=== PATIENT | male | born 1955 | race African-American/Black ===

== ENCOUNTER 2018-01-07 15:27 | Outpatient (CLI) | payer BC ==
--- NOTE | 2018-01-07 16:39 | MRI ---
MRI LUMBAR SPINE WITHOUT CONTRAST: 01/07/18 HISTORY: Intervertebral degenerative disc disease with radiculopathy. Low back pain radiating down the left le g x1 year. COMPARISON: None. TECHNIQUE: MRI lumbar spine is performed without intravenous gadolinium administration. Multisequential, multipl franklyn imaging is performed. FINDINGS: Appropriate T1 marrow signal intensity in the lumbar vertebrae. Lumbar spine vertebral body height is maintained. No fracture. 3 mm of retrolisthesis of L2 upon L3 and 3.5 mm of anterolisthesis of L4 up on L5. No significant STIR hyperintensity to suggest vertebral body or ligamentous injury. Conus medu llaris terminates at the mid aspect of L1. No retroperitoneal mass or lymphadenopathy. Symmetric signal intensity of the psoas muscles. The visu alized solid organs have appropriate signal intensity. T12-L1: Mild loss of disc space height. Minimal central disc protrusion. No significant central canal stenosis. Mild bilateral foraminal narrowing. L1-L2: Mild loss of disc space height. Small left paracentral/subarticular disc protrusion. There is minimal narrowing of the left subarticular zone without significant mass effect upon the traversing l eft L2 nerve root. Overall mild central canal stenosis. Right neural foramen is patent. Mild left for aminal narrowing. L2-L3: Moderate loss of disc space height. Generalized disc bulge results in mild stenosis of the the alirio sac. Small amount of fluid in both interarticular facet joints. Mild to moderate bilateral forami nal narrowing. There is a small annular fissure in the left subarticular zone. This fissure abuts the t raversing left L3 nerve root. L3-L4: Adequate disc hydration. No significant loss of disc space height. There is minimal ligamentum flavum thickening and facet hypertrophy. No significant central canal stenosis. Mild right and left foraminal narrowing. L4-L5: Moderate loss of disc space height. There is a broad based disc bulge with left and right suba rticular components. There is mild stenosis of the thecal sac. However, there is complete obscuration of bilateral traversing L5 nerve roots. There is also inferior disc extrusion into the left subartic ular zone with disc material displacing and partially obscuring the traversing left S1 nerve root. Di sc material also causes some mass effect upon the traversing left L5 nerve root. There is bilateral f acet hypertrophy with moderate amount of fluid in both facet joints. L5-S1: Desiccation with moderate to severe loss of disc space height. There is a generalized disc bul ge with minimal encroachment upon both subarticular zones. Mild stenosis of the thecal sac. Moderate to severe bilateral foraminal narrowing. IMPRESSION: 1. Overall decreased AP diameter of the central spinal canal due to congenitally foreshortened p edicles. 2. Significant degenerative disc disease at L4-L5. There is mass effect upon both traversing L5 nerve roots due to disc material in both subarticular zones. Additionally, there is a inferior disc e xtrusion in the left subarticular zone with disc material abutting the traversing left L5 and S1 nerv e roots. 3. Significant multilevel foraminal stenosis as detailed above. 4. Annual fissure at the L2-L3 subarticular zone. Annular fissure is at the level of the traversing left L3 nerve root. POS: ORION
== END 2018-01-07 15:28 | disposition home or self-care (01) ==
LOC: TBSIIMAG 15:27
PROVIDERS: ATTEND Specialist
DX: M51.16 Intervertebral disc disorders with radiculopathy, lumbar region (principal); M51.17 Intervertebral disc disorders with radiculopathy, lumbosacral region; Q76.49 Other congenital malformations of spine, not associated with scoliosis; M99.83 Other biomechanical lesions of lumbar region; Q05.7 Lumbar spina bifida without hydrocephalus
CPT/HCPCS: 72148

== ENCOUNTER 2018-12-14 10:17 | Outpatient (CLI) | payer MEDICARE, BC ==
--- NOTE | 2018-12-14 11:37 | MRI ---
MRI lumbar spine: 12/14/2018 COMPARISON: 01/07/2018 HISTORY: Back pain with lumbar radiculopathy, left lower extremity pain TECHNIQUE: Multiplanar multisequence MR imaging of the lumbar spine provided without contrast FINDINGS: The sagittal STIR imaging demonstrates no focal area of osseous marrow edema. On the basis of 5 lumbar type vertebral bodies, the conus medullaris terminates at the L1 level. No significant anterolisthesis or retrolisthesis within the lumbar spine. T12-L1: There is disc space narrowing and mild disc bulge with a small central disc protrusion, stabl e. Stable mild central canal stenosis. No significant neural foraminal stenosis. L1-2: Stable small left paracentral disc protrusion. Disc space narrowing and disc desiccation noted. Stable mild left lateral recess stenosis. No significant neural foraminal stenosis. L2-3: Disc space narrowing disc desiccation and a mild disc bulge. No significant central canal steno sis. Mild bilateral facet hypertrophy with mild stable bilateral neural foraminal stenosis. L3-4: Intervertebral disc height and signal intensity appears grossly unremarkable with no significan t central canal or neural foraminal stenosis L4-5: There is disc space narrowing, disc desiccation, and disc bulge noted with superimposed right p aracentral disc protrusion, stable. There is associated moderate central canal stenosis/right lateral recess stenosis, stable as well. Significant bilateral facet hypertrophy noted with moderate bilater al neural foraminal stenosis, left greater than right, not significantly changed. L5-S1: There is disc space narrowing and disc desiccation with central disc protrusion, stable. Stabl e mild/moderate central canal stenosis. Mild bilateral facet hypertrophy with stable mild bilateral n eural foraminal stenosis. Vacuum disc formation noted. Review of the retroperitoneal structures demonstrates no acute findings. IMPRESSION: Multilevel stable degenerative change within the lumbar spine as detailed above.
--- NOTE | 2018-12-14 12:03 | RAD ---
LUMBAR SPINE FOUR VIEWS: History: Lumbar stenosis, neurogenic claudication. FINDINGS: Lumbar vertebrae maintain height and alignment. Moderate degenerative changes. Anterior spurring. [place] s of disc space at L2-3, L4-5, and L5-S1. Mild anterolisthesis of L4-5. Prominent facet hypertrophy. No significant change in alignment with flexion or extension. IMPRESSION: Moderate degenerative changes of the lumbar spine as described. POS: [facility]ION
== END 2018-12-14 10:18 | disposition home or self-care (01) ==
LOC: TBSIIMAG 10:17
PROVIDERS: ATTEND Surgery
DX: M48.062 Spinal stenosis, lumbar region with neurogenic claudication (principal); M47.26 Other spondylosis with radiculopathy, lumbar region
CPT/HCPCS: 72110; 72148

== ENCOUNTER 2019-03-22 09:21 | Day surgery (SDC) | payer MEDICARE, BC ==
[2019-03-21 12:36] VITALS: BMI 34.4
[2019-03-22] MEDS ORDERED: Fentanyl 100 MCG/2 ML VIAL ONE ×4 (10:26→15:43)
[2019-03-22 10:45] LABS: Prothrombin Time 13.3 SEC (12.0-14.7)
[2019-03-22 10:46] LABS: PTT 37.9 SEC (22.9-36.1)
[2019-03-22] MEDS ORDERED: Thrombin 5000 UNITS/5 ML VIAL ONE ×2 (10:56→13:14)
[2019-03-22] MEDS ORDERED: Sodium Chloride 0.9% 10 ML ONE (10:56)
[2019-03-22] MEDS ORDERED: Rocuronium Bromide 50 MG/5 ML VIAL ONE (12:24)
[2019-03-22] MEDS ORDERED: Phenylephrine HCL 10 MG/ML VIAL ONE (12:24)
--- NOTE | 2019-03-22 14:44 | OP ---
DATE OF PROCEDURE: 03/22/2019 LOCATION: OR 11. WOUND CLASSIFICATION: Type 1 wound. PROCEDURES RN: Eloy Harley PA-C PREPROCEDURE DIAGNOSES: 1. Lumbar stenosis with low back and leg pain. 2. Lumbar disk extrusion. POSTPROCEDURE DIAGNOSES: 1. Lumbar stenosis with low back and leg pain. 2. Lumbar disk extrusion. PROCEDURE PERFORMED: 1. L4-L5 and L5-S1 laminectomies, partial facetectomies, and foraminotomies. 2. Use of operative microscope for microdissection. DESCRIPTION OF PROCEDURE: After informed consent was obtained from the patient, the patient was brought to the OR. Proper patient, pause, and identification were carried out. He was placed under excellent general endotracheal anesthesia and positioned prone on the OR table. All appropriate points were padded. We identified the L4, L5, and S1 dorsal spines. A linear que was made over this area. This region was sterilely cleansed, prepared, and draped. Proper patient, pause, and identification were carried out. The wound was then opened with a combination of sharp, monopolar, and blunt dissection. The L4, L5, and S1 dorsal spines and lamina were exposed. Localization film confirmed area of interest. We then performed L4-L5 and L5-S1 laminectomies, partial facetectomies, and foraminotomies. There was small amount of CSF leakage at the L4-L5 segment. Two single sutures were placed with no evidence of further CSF leakage. Copious irrigation occurred throughout and we had excellent decompression of the common dural tube of the L4, the L5, and the S1 nerve roots bilaterally. We then brought the microscope in for microdissection and identified right-sided L4-L5 disk extrusion. Diskectomy was performed. We were satisfied with our decompression. Again, maximized hemostasis. Copious irrigation. DuraSeal was placed over the thecal sac and there was no evidence of CSF leak. Job ID: [id number]
[2019-03-22] MEDS ORDERED: Mag-Al 1200 mg/1200 mg/30 ML UDCUP PO PRN (15:07)
[2019-03-22] MEDS ORDERED: Ondansetron PF 4 MG/2 ML Vial IVP PRN (15:07)
[2019-03-22] MEDS ORDERED: HYDROcodone/Acetaminophen 7.5/325 mg Tablet PO PRN (15:07)
[2019-03-22] MEDS ORDERED: traMADol HCl 50 MG TAB PO PRN (15:07)
[2019-03-22] MEDS ORDERED: Fleet Enema 133 ML BOT PR PRN (15:07)
[2019-03-22] MEDS ORDERED: Acetaminophen 325 MG TAB PO PRN (15:07)
[2019-03-22] MEDS ORDERED: Bisacodyl 10 MG SUPP PR PRN (15:07)
[2019-03-22] MEDS ORDERED: Milk Of Magnesia 30 ML UDCUP PO PRN (15:07)
[2019-03-22] MEDS ORDERED: tiZANidine HCl 4 MG TAB PO PRN (15:07)
[2019-03-22] MEDS ORDERED: Ondansetron HCl/PF 4 MG/2 ML Vial IVP PRN (15:15)
[2019-03-22] MEDS ORDERED: CEFAZOLIN 2 GM in Premix Bag 1 BAG IVPB SCH (15:15)
[2019-03-22] MEDS ORDERED: Meperidine HCl/PF 25 MG/ML VIAL SLOW IVP PRN (15:15)
[2019-03-22] MEDS ORDERED: Promethazine HCl 25 MG/ML VIAL IM PRN (15:15)
[2019-03-22] MEDS: Sodium Chloride 0.9% 1,000 ML IV SCH ×2 (17:08→20:01)
[2019-03-22] MEDS: Acetaminophen/Codeine 30-300mg Tablet PO PRN (20:01)
[2019-03-22] MEDS: CEFAZOLIN 2 GM in Premix Bag 1 BAG IVPB SCH (20:02)
[2019-03-23] MEDS: Sodium Chloride 0.9% 1,000 ML IV SCH (04:06)
[2019-03-23] MEDS: CEFAZOLIN 2 GM in Premix Bag 1 BAG IVPB SCH (04:06)
[2019-03-23] MEDS: Acetaminophen/Codeine 30-300mg Tablet PO PRN (07:17)
[2019-03-23] MEDS ORDERED: Amlodipine 10 MG TAB PO SCH (09:00)
--- NOTE | 2019-03-23 09:47 | PRG ---
DATE OF SERVICE: 03/23/2019 Mr. Bob is postoperative day 1 from lumbar decompression. He states he has had resolution in his leg pain and he is moving his extremities without deficit. His dressing is dry and he is doing very, very well. He is very pleased with the outcome. He has had no evidence of CSF or hypotension, and he is already mobilizing. We went over intra and postoperative issues and he knows to call us with any concerns. Job ID: [id number]
[2019-03-23 12:03] VITALS: BP 146/90; TEMP 98.5
== END 2019-03-23 11:15 | disposition home or self-care (01) ==
LOC: SDC 09:21 → SURG B 17:00 → SDC 03-23 11:15
PROVIDERS: ATTEND Surgery
PROC: 01NB0ZZ Release Lumbar Nerve, Open Approach (ICD-10-PCS; principal; 2019-03-22)
PROC: 0SB20ZZ Excision of Lumbar Vertebral Disc, Open Approach (ICD-10-PCS; 2019-03-22)
DX: M48.061 Spinal stenosis, lumbar region without neurogenic claudication (principal); M48.07 Spinal stenosis, lumbosacral region; M51.16 Intervertebral disc disorders with radiculopathy, lumbar region; Z79.899 Other long term (current) drug therapy
CPT/HCPCS: 76000; 85610; 85730; J0131; J0690; J2370; J3010; J3370; J3490

== ENCOUNTER 2023-06-09 10:01 | Outpatient (CLI) | payer MEDICARE ==
[2023-06-09 11:51] LABS: #Basophils 0.1 10x3/uL (0.0-0.2); #Eosinphils 0.3 10x3/uL (0.0-0.5); #Monocytes 0.7 10x3/uL (0.0-1.1); #Neutrophils 6.1 10x3/uL (1.5-8.4); %Basophils 0.6 % (0.0-2.0); %Lymphocytes 24.4 % (18.0-47.0); %Monocytes 7.6 % (0.0-10.0); %Neutrophils 64.1 % (40.0-75.0); Hematocrit 39.4 % (38.8-50.0); Hemoglobin 12.8 g/dL (13.5-17.5); Mean Corpuscular HGB CONC 32.5 g/dL (32.0-36.0); Mean Corpuscular Hemoglobin 27.9 pg (27.0-33.0); Mean Platelet Volume 9.6 fl (7.4-10.4); Platelet Count 290 10x3/uL (150-450); RBC Distribution Width 14.1 % (11.5-14.5); Red Blood Cell (RBC) Count 4.58 10x6/uL (4.32-5.72); White Blood Cell (WBC) Count 9.5 10x3/uL (3.5-10.5)
[2023-06-09 12:14] LABS: Anion Gap 15 mmol/L (10-20); BUN (Urea Nitrogen) 8 mg/dL (8.4-25.7); Calc. Creatinine Clearance 0 mL/min (70-130); Calcium 9.3 mg/dL (7.8-10.44); Carbon Dioxide 25 mmol/L (23-31); Chloride 106 mmol/L (98-107); Estimated GFR 83; Glucose 96 mg/dL (80-115); Potassium 4.1 mmol/L (3.5-5.1); Sodium 142 mmol/L (136-145)
== END 2023-06-09 10:02 | disposition home or self-care (01) ==
LOC: LABBT 10:01
PROVIDERS: ATTEND Orthopaedic Surgery
DX: Z01.818 Encounter for other preprocedural examination (principal); M19.011 Primary osteoarthritis, right shoulder
CPT/HCPCS: 80048; 85025; 93005; 93010

== ENCOUNTER 2023-07-06 07:43 | Outpatient (CLI) | payer MEDICARE ==
[2023-07-06 09:16] LABS: #Basophils 0.1 10x3/uL (0.0-0.2); #Eosinphils 0.3 10x3/uL (0.0-0.5); #Monocytes 0.9 10x3/uL (0.0-1.1); #Neutrophils 3.7 10x3/uL (1.5-8.4); %Basophils 0.9 % (0.0-2.0); %Eosinophils 3.9 % (0.0-6.0); %Lymphocytes 35.2 % (18.0-47.0); %Monocytes 11.8 % (0.0-10.0); %Neutrophils 48.1 % (40.0-75.0); Hematocrit 40.6 % (38.8-50.0); Hemoglobin 13.2 g/dL (13.5-17.5); Mean Corpuscular HGB CONC 32.5 g/dL (32.0-36.0); Mean Corpuscular Hemoglobin 28.4 pg (27.0-33.0); Mean Corpuscular Volume 87.3 fl (81.2-95.1); Mean Platelet Volume 9.8 fl (7.4-10.4); Platelet Count 326 10x3/uL (150-450); RBC Distribution Width 14.3 % (11.5-14.5); Red Blood Cell (RBC) Count 4.65 10x6/uL (4.32-5.72); White Blood Cell (WBC) Count 7.8 10x3/uL (3.5-10.5)
[2023-07-06 09:39] LABS: ALT (SGPT) 33 U/L (8-55); AST (SGOT) 35 U/L (5-34); Albumin 4.6 g/dL (3.4-4.8); Alkaline Phosphatase 75 U/L (40-110); Anion Gap 16 mmol/L (10-20); BUN (Urea Nitrogen) 12 mg/dL (8.4-25.7); Bilirubin, Total 0.5 mg/dL (0.2-1.2); Calc. Creatinine Clearance 0 mL/min (70-130); Calcium 9.6 mg/dL (7.8-10.44); Carbon Dioxide 23 mmol/L (23-31); Chloride 106 mmol/L (98-107); Estimated GFR 68; Globulin 3.3 g/dL (2.4-3.5); Glucose 109 mg/dL (80-115); Potassium 4.5 mmol/L (3.5-5.1); Protein, Total 7.9 g/dL (5.8-8.1); Sodium 140 mmol/L (136-145)
== END 2023-07-06 07:44 | disposition home or self-care (01) ==
LOC: LABBT 07:43
PROVIDERS: ATTEND Internal Medicine Cardiovascular Disease
DX: Z01.812 Encounter for preprocedural laboratory examination (principal)
CPT/HCPCS: 80053; 85025

== ENCOUNTER 2023-07-08 05:36 | Day surgery (SDC) | payer MEDICARE ==
[2023-07-06 08:25] VITALS: BMI 34.2
[2023-07-08] MEDS ORDERED: Midazolam HCl 2 mg/2 ml Vial ONE (06:17)
[2023-07-08] MEDS ORDERED: fentaNYL 50 mcg/mL 1 mL Vial ONE (06:17)
[2023-07-08] MEDS ORDERED: Nitroglycerin 50 MG/250 ML BOT 250 ML ONE (06:17)
[2023-07-08] MEDS ORDERED: Heparin 10,000 UNITS/ 10 ML VIAL ONE ×2 (06:17→08:46)
[2023-07-08] MEDS ORDERED: Lidocaine 1% (PF) 30 ML VIAL ONE (06:17)
[2023-07-08] MEDS ORDERED: Atropine Sulfate 1 mg/10 ml Syringe ONE (07:39)
[2023-07-08] MEDS ORDERED: Clopidogrel Bisulfate 300 MG TAB ONE (08:05)
[2023-07-08] MEDS ORDERED: Aspirin Chewable 81 MG TAB ONE (08:05)
[2023-07-08] MEDS ORDERED: Iopamidol 370 76% 100 ML VIAL ONE (13:12)
== END 2023-07-08 18:29 | disposition home or self-care (01) ==
LOC: SDC 05:36
PROVIDERS: ATTEND Internal Medicine Cardiovascular Disease
PROC: 4A023N7 Measurement of Cardiac Sampling and Pressure, Left Heart, Percutaneous Approach (ICD-10-PCS; principal; 2023-07-08)
PROC: B215YZZ Fluoroscopy of Left Heart using Other Contrast (ICD-10-PCS; 2023-07-08)
DX: I44.7 Left bundle-branch block, unspecified (principal); R07.89 Other chest pain; R94.39 Abnormal result of other cardiovascular function study; I10 Essential (primary) hypertension; Z79.899 Other long term (current) drug therapy; Z79.890 Hormone replacement therapy
CPT/HCPCS: 85347 ×2; 92928; 93005; 93460; C1725; C1769 ×3; C1876; J3010; 99152; 99153; J0461; J1644; J2001; J2250; Q9967

== ENCOUNTER 2023-08-24 09:01 | Outpatient (CLI) | payer MEDICARE ==
[2023-08-24 09:58] LABS: #Basophils 0.1 10x3/uL (0.0-0.2); #Eosinphils 0.2 10x3/uL (0.0-0.5); #Monocytes 0.6 10x3/uL (0.0-1.1); #Neutrophils 3.7 10x3/uL (1.5-8.4); %Basophils 0.8 % (0.0-2.0); %Eosinophils 2.3 % (0.0-6.0); %Lymphocytes 31.3 % (18.0-47.0); %Neutrophils 56.4 % (40.0-75.0); Hematocrit 40.8 % (38.8-50.0); Hemoglobin 13.4 g/dL (13.5-17.5); Mean Corpuscular HGB CONC 32.8 g/dL (32.0-36.0); Mean Corpuscular Hemoglobin 28.4 pg (27.0-33.0); Mean Corpuscular Volume 86.4 fl (81.2-95.1); Mean Platelet Volume 9.1 fl (7.4-10.4); Platelet Count 317 10x3/uL (150-450); RBC Distribution Width 13.7 % (11.5-14.5); Red Blood Cell (RBC) Count 4.72 10x6/uL (4.32-5.72); White Blood Cell (WBC) Count 6.6 10x3/uL (3.5-10.5)
[2023-08-24 10:34] LABS: Anion Gap 15 mmol/L (10-20); BUN (Urea Nitrogen) 11 mg/dL (8.4-25.7); Calc. Creatinine Clearance 0 mL/min (70-130); Calcium 9.3 mg/dL (7.8-10.44); Carbon Dioxide 22 mmol/L (23-31); Chloride 107 mmol/L (98-107); Estimated GFR 76; Glucose 104 mg/dL (80-115); Potassium 4.1 mmol/L (3.5-5.1); Sodium 140 mmol/L (136-145)
== END 2023-08-24 09:02 | disposition home or self-care (01) ==
LOC: LABBT 09:01
PROVIDERS: ATTEND Orthopaedic Surgery
DX: Z01.818 Encounter for other preprocedural examination (principal); M19.011 Primary osteoarthritis, right shoulder
CPT/HCPCS: 80048; 85025; 93005; 93010

== ENCOUNTER 2023-08-27 07:01 | Day surgery (SDC) | payer MEDICARE ==
[2023-08-24 09:41] VITALS: BMI 32.4
[2023-08-27] MEDS ORDERED: Tranexamic Acid 1,000 MG/10 ML VIAL ONE (08:19)
[2023-08-27] MEDS ORDERED: Vancomycin (BATCH) 1.5 GM/300 ML BAG ONE (08:19)
[2023-08-27] MEDS ORDERED: Sodium Chloride 0.9% 100 ML ONE ×2 (08:19→09:46)
[2023-08-27] MEDS ORDERED: Midazolam HCl 2 mg/2 ml Vial ONE (08:21)
[2023-08-27] MEDS ORDERED: fentaNYL 50 mcg/mL 1 mL Vial ONE (08:21)
[2023-08-27] MEDS ORDERED: Ropivacaine 0.5% HCl/PF (150 MG/30 ML VIAL) ONE ×2 (08:22→08:23)
[2023-08-27] MEDS ORDERED: Bupivacaine PF 0.5% 30 ML VIAL ONE (08:22)
[2023-08-27] MEDS ORDERED: Ropivacaine 0.2% 550 ML 550 ML NERVE BLCK SCH (09:15)
[2023-08-27] MEDS ORDERED: Ondansetron PF 4 MG/2 ML Vial IVP PRN (09:15)
[2023-08-27] MEDS ORDERED: Zolpidem Tartrate 5 MG TAB PO PRN (09:15)
[2023-08-27] MEDS ORDERED: Promethazine HCl 25 MG/ML VIAL IM PRN (09:15)
[2023-08-27] MEDS ORDERED: fentaNYL 50 mcg/mL 1 mL Vial SLOW IVP PRN (09:15)
[2023-08-27] MEDS ORDERED: HYDROcodone/Acetaminophen 10/325 mg Tablet PO PRN ×2 (09:15)
[2023-08-27] MEDS ORDERED: fentaNYL PF 100 MCG/2 ML SYRINGE ONE (09:39)
[2023-08-27] MEDS ORDERED: PROPOFOL 20 ML ONE (09:39)
[2023-08-27] MEDS ORDERED: CEFAZOLIN 2 GM VIAL ONE (09:46)
[2023-08-27] MEDS ORDERED: Ketorolac Tromethamine 30 MG/ML VIAL ONE ×2 (09:56→10:43)
[2023-08-27] MEDS ORDERED: Dexamethasone 20 MG/5 ML VIAL ONE ×2 (09:56→10:43)
[2023-08-27] MEDS ORDERED: PHENYLEPHRINE-NS 100 MCG/ML 10 ML SYRINGE ONE ×2 (09:56→10:42)
[2023-08-27] MEDS ORDERED: ePHEDrine Sulfate 50 MG/10 ML VIAL ONE ×2 (09:56→10:42)
[2023-08-27] MEDS ORDERED: PROPOFOL 200 MG/20 ML VIAL ONE (09:56)
[2023-08-27] MEDS ORDERED: Rocuronium Bromide 10 MG/ML (10ML VIAL) ONE (09:56)
[2023-08-27] MEDS ORDERED: Ondansetron PF 4 MG/2 ML Vial ONE ×2 (09:56→10:43)
[2023-08-27] MEDS ORDERED: Ketorolac Tromethamine 30 MG/ML VIAL IVP SCH (12:00)
== END 2023-08-27 14:08 | disposition home or self-care (01) ==
LOC: SDC 07:01
PROVIDERS: ATTEND Orthopaedic Surgery
PROC: 0RRJ0JZ Replacement of Right Shoulder Joint with Synthetic Substitute, Open Approach (ICD-10-PCS; principal; 2023-08-27)
PROC: 0LS30ZZ Reposition Right Upper Arm Tendon, Open Approach (ICD-10-PCS; 2023-08-27)
DX: M19.011 Primary osteoarthritis, right shoulder (principal); M19.012 Primary osteoarthritis, left shoulder; M75.21 Bicipital tendinitis, right shoulder
CPT/HCPCS: 23430; 23472; A4306; C1776 ×3; J3010; J3370; J1100; J1885; J2250; J2405; J2704; J2795; J3490; S0020